=== PATIENT | male | born 1990 ===

== ENCOUNTER 2017-09-08 20:09 | Emergency (ER) | payer OTHER ==
[~2017-09-08] VITALS: Ht 152.4 cm; Wt 56.7 kg
--- NOTE | 2017-09-08 22:00 | NUR ---
PATIENT C/O RASH ON RIGHT ANKLE X3 DAYS. PATIENT STATES SPRAIN RIGHT ANKLE 3 DAYS AGO AND APPLIED TIGER BALM AND SOON AFTER APPLYING OINTMENT RASH APPEARED
[2017-09-08] MEDS ORDERED: diphenhydrAMINE 25 MG CAP PO ONE ×2 (22:41→22:45)
--- NOTE | 2017-09-08 22:48 | NUR ---
Patient discharged to home in stable conditon. Written and verbal after care instructions given. Patient verbalizes understanding of instructions. WALKED OUT OF ER WITH STEADY GAIT
[2017-09-08 22:51] VITALS: BP 140/88
== END 2017-09-08 22:52 | disposition home or self-care (01) ==
LOC: ER 20:11
DX: L03.115 Cellulitis of right lower limb (principal); L25.9 Unspecified contact dermatitis, unspecified cause; Z88.0 Allergy status to penicillin; Z90.49 Acquired absence of other specified parts of digestive tract
CPT/HCPCS: A4663; Q0163